=== PATIENT | female | born 1990 | race Caucasian/White ===

== ENCOUNTER 2016-08-02 13:39 | Emergency (ER) | payer OTHER ==
[~2016-08-02] VITALS: Wt 58.5 kg
[~2016-08-02 13:39] MED LIST: PREN1TAB49 PO
[2016-08-02] MEDS ORDERED: ACET500C5 PO (14:12)
[2016-08-02] MEDS ORDERED: IBUP-1542 PO (14:12)
[2016-08-02] MEDS ORDERED: BACTDS PO (14:13)
[2016-08-02] MEDS ORDERED: CEPH-443 PO (14:13)
--- NOTE | 2016-08-02 14:24 | ERD ---
ER Documentation Chief Complaint Date/Time DATE: 08/02/16 TIME: 14:15 Chief Complaint ABCESS ON RIGHT ELBOW HPI This is a 25-year-old female who presents to the emergency department today complaining of a bump on her right elbow as well as some swelling and redness for the past 3 days. States that she thinks she had a pimple there a couple of days ago when she picked at it yesterday. States that her arm feels warm but denies any fevers or chills. ROS All systems reviewed and are negative except as per history of present illness. Medications Home Meds Active Scripts Sulfamethoxazole-Trimethoprim* (Bactrim* DS) 800-160 Mg Tab, 1 TAB PO BID for 7 Days, TAB Prov:GURPREET MULLINS-C 08/02/16 Cephalexin* (Keflex*) 500 Mg Capsule, 500 MG PO QID for 7 Days, CAP Prov:GURPREET MULLINS-C 08/02/16 Acetaminophen* (Tylophen*) 500 Mg Capsule, 1 CAP PO Q6H Y for PAIN AND OR ELEVATED TEMP, #30 CAP Prov:GURPREET MULLINS-C 08/02/16 Ibuprofen* (Motrin*) 600 Mg Tab, 600 MG PO Q6, #30 TAB Prov:GURPREET MULLINS-C 08/02/16 Reported Medications Vits W-Ca,Fe,Fa(<1MG) () 1 Tab Tablet, 1 TAB PO DAILY 11/20/11 Allergies Allergies: Coded Allergies: No Known Allergy (Unverified , 11/20/11) PMhx/Soc History of Surgery: No Anesthesia Reaction: No Hx Neurological Disorder: No Hx Respiratory Disorders: No Hx Cardiac Disorders: No Hx Psychiatric Problems: No Hx Miscellaneous Medical Probl: No Hx Alcohol Use: No Hx Substance Use: No Hx Tobacco Use: No Physical Exam Vitals Vital Signs Date Time Temp Pulse Resp B/P Pulse Ox O2 Delivery O2 Flow Rate FiO2 08/02/16 13:43 99.1 112 17 137/82 99 Physical Exam Const: No acute distress Head: Atraumatic Eyes: Normal Conjunctiva ENT: Normal External Ears, Nose and Mouth. Neck: Full range of motion..~ No meningismus. Resp: Clear to auscultation bilaterally Cardio: tachycardic rhythm, no murmurs Skin: Right proximal forearm with evidence of 1.5-2 cm abscess with localized erythema and cellulitis. No fluctuance. No purulent drainage. MSK: Right elbow and wrist with full active range of motion. Evidence of 1.5- 2 cm abscess at distal elbow or proximal forearm that is firm and indurated with localized evidence of cellulitis Neur: Awake and alert Psych: Normal Mood and Affect Procedures/MDM This is a 25-year-old female who presents to the emergency department today for a bump and redness by her right elbow. On physical exam patient has a 1.5-2 cm abscess with firmness and induration. No evidence of fluctuance. There is an area of localized cellulitis. Patient is tachycardic however she is afebrile and otherwise well-appearing. I do not feel the patient requires an incision and drainage at this time. I will give the patient a prescription for Bactrim and Keflex to treat the abscess and cellulitis. She was instructed to return in 48 hours for a wound check. Patient has full active range of motion of her joints and I have low suspicion for septic joint or gout. Low suspicion for sepsis or deep space infection. At this time the patient is stable for discharge and outpatient management. Patient should follow up with their PCP in the next 1-2 days. They may return to the emergency department sooner for any persistent or worsening of symptoms. Patient understood and agreed with the plan. Departure Diagnosis: Primary Impression: Abscess Additional Impression: Cellulitis Site of cellulitis: extremity Site of cellulitis of extremity: upper extremity Laterality: right Qualified Code: L03.113 - Cellulitis of right upper extremity Condition: Fair Patient Instructions: Abscess, Antiobiotic Treatment Only Referrals: MELODY AUGUSTINE (PCP) Additional Instructions: Call your primary care doctor TOMORROW for an appointment during the next 1-2 days.See the doctor sooner or return here if your condition worsens before your appointment time. Wound check in 48 hours Take antibiotics as prescribed Apply warm compresses Take Tylenol or Motrin for pain GURPREET MULLINS PA-C Aug 02, 2016 14:23
== END 2016-08-02 14:34 | disposition home or self-care (01) ==
LOC: FTE 13:39
DX: L02.413 Cutaneous abscess of right upper limb (principal); L03.113 Cellulitis of right upper limb
CPT/HCPCS: 99284

== ENCOUNTER 2016-08-04 05:30 | Emergency (ER) | payer OTHER ==
[~2016-08-04] VITALS: Ht 149.9 cm; Wt 59.0 kg
[~2016-08-04 05:30] MED LIST changes: +ACET500C5 PO; +BACTDS PO; +CEPH-443 PO; +IBUP-1542 PO
[2016-08-04 05:33] VITALS: Ht 149.9 cm; Wt 59.0 kg
[2016-08-04] MEDS ORDERED: LIDOCAINE 1% (MDV) 20 ML INJ SC ONE (07:30)
[2016-08-04] MEDS ORDERED: IBUPROFEN 600 MG TAB PO ONE (07:30)
--- NOTE | 2016-08-04 08:15 | ERD ---
ER Documentation Chief Complaint Date/Time DATE: 08/04/16 TIME: 08:06 Chief Complaint recheck abcess on rt arm HPI This is a 24-year-old female presenting to the ED for a wound recheck of her right arm abscess. Patient was in the ED 2 days ago, no procedure was warranted and she was discharged home with Keflex and Bactrim. Patient states that a pointing abscess has developed after she was discharged in the ED. denies any fever, numbness or tingling on the right extremity. Right arm pain is controlled by ibuprofen. Patient is taking antibiotics as prescribed. ROS All systems reviewed and are negative except as per history of present illness. Medications Home Meds Active Scripts Sulfamethoxazole-Trimethoprim* (Bactrim* DS) 800-160 Mg Tab, 1 TAB PO BID for 7 Days, TAB Prov:GURPREET MULLINS-C 08/02/16 Cephalexin* (Keflex*) 500 Mg Capsule, 500 MG PO QID for 7 Days, CAP Prov:GURPREET MULLINS-C 08/02/16 Acetaminophen* (Tylophen*) 500 Mg Capsule, 1 CAP PO Q6H Y for PAIN AND OR ELEVATED TEMP, #30 CAP Prov:GURPREET MULLINS-C 08/02/16 Ibuprofen* (Motrin*) 600 Mg Tab, 600 MG PO Q6, #30 TAB Prov:GURPREET MULLINS-C 08/02/16 Reported Medications Vits W-Ca,Fe,Fa(<1MG) () 1 Tab Tablet, 1 TAB PO DAILY 11/20/11 Allergies Allergies: Coded Allergies: No Known Allergy (Unverified , 11/20/11) PMhx/Soc History of Surgery: No Anesthesia Reaction: No Hx Neurological Disorder: No Hx Respiratory Disorders: No Hx Cardiac Disorders: No Hx Psychiatric Problems: No Hx Miscellaneous Medical Probl: No Hx Alcohol Use: No Hx Substance Use: No Hx Tobacco Use: No Smoking Status: Never smoker Physical Exam Vitals Vital Signs Date Time Temp Pulse Resp B/P Pulse Ox O2 Delivery O2 Flow Rate FiO2 08/04/16 05:33 97.8 96 16 127/77 99 Physical Exam Physical Exam CONST: Well-developed, well-nourished, in no acute distress. Nontoxic in appearance. HEENT: Atraumatic. Normal conjunctiva. EOM intact. TM intact. External ear is normal. Clear oropharnyx without erythema. No uvular deviation. Moist mucous membranes. Supple neck. No meningismus. No submandibular induration. RESP: Clear to auscultation bilaterally. No wheezing. CARDIO: Regular rate and rhythm, no murmurs. ABD: Soft, non tender, non distended. Normal bowel sounds. No McBurney's point tenderness. No guarding or rigidity. No peritoneal signs. SKIN: Pointing abscess noted on the dorsal aspect of the right forearm. Erythema appears to be less compared to the markings from the previous ED visit. BACK: No midline or flank tenderness. EXT: Range of motion on the right upper extremity is intact. No cyanosis or edema. Distal pulses equal and bilateral. NEURO: Awake and alert, appropriate for age. Results 24 hrs Current Medications Medications (Trade) Dose Ordered Sig/Jared Route PRN Reason Start Time Stop Time Status Last Admin Dose Admin Ibuprofen (Motrin) 600 mg ONCE ONCE PO 08/04/16 07:30 4 07:31 DC 08/04/16 07:20 Lidocaine (Xylocaine 1% (Mdv) 20 ml) 20 ml ONCE ONCE SC 08/04/16 07:30 08/04/16 07:31 DC Procedures/MDM EMERGENCY DEPARTMENT COURSE/MEDICAL DECISION MAKING This is a 25-year-old female who comes to the emergency room for a wound recheck secondary to abscess on the right forearm. Upon examination, there is a pointing abscess on the dorsal aspect of the right forearm. Erythema is less compared to the markings was done on the previous ED visit. Abscess Incision and Drainage with irrigation by me: Location: Dorsal aspect of the proximal right forearm Anesthesia: Local 1% Lidocaine Technique: 1 cm incision was made using a scalpel. Disrupted loculations w/ instrumentation Packing: Iodoform packing strip Complications: Neurovascularly intact post procedure 48 hour wound check. Scar minimization instructions given. Patient's skin symptoms have stabilized while they have been evaluated in the department and are appropriate for outpatient care and work up. Exam and w/u not consistent w/ sepsis, deep space infection, or foreign body. My primary diagnosis is abscess. Secondary diagnosis right arm pain Differential diagnoses considered but not limited to cellulitis, foreign body, tenosynovitis, dermatitis. Pt is hemodynamically stable upon reassessment. The patient was discharged for outpatient management and was instructed to continue the prescribed antibiotics. Patient was also advised to return to ED in 2 days for wound recheck. The patient was advised to followup with their PMD in 1-2 days and to return to the Emergency Department if there are any new or worsening symptoms. The patient understood and agreed with the diagnosis, treatment and plan. Patient is stable for discharge at this time. Departure Diagnosis: Primary Impression: Abscess Additional Impression: Arm pain Laterality: right Qualified Code: M79.601 - Pain of right upper extremity Patient Instructions: Abscess, Incision And Drainage Referrals: [facility] YOU HAVE RECEIVED A MEDICAL SCREENING EXAM AND THE RESULTS INDICATE THAT YOU DO NOT HAVE A CONDITION THAT REQUIRES URGENT TREATMENT IN THE EMERGENCY DEPARTMENT. FURTHER EVALUATION AND TREATMENT OF YOUR CONDITION CAN WAIT UNTIL YOU ARE SEEN IN YOUR DOCTORS OFFICE WITHIN THE NEXT 1-2 DAYS. IT IS YOUR RESPONSIBILITY TO MAKE AN APPOINTMENT FOR FOLOW-UP CARE. IF YOU HAVE A PRIMARY DOCTOR --you should call your primary doctor and schedule an appointment IF YOU DO NOT HAVE A PRIMARY DOCTOR YOU CAN CALL OUR PHYSICIAN REFERRAL HOTLINE AT IF YOU CAN NOT AFFORD TO SEE A PHYSICIAN YOU CAN CHOSE FROM THE FOLLOWING [facility] [id number] [facility]. [facility] [address] [facility] [facility] [address] [facility] [facility] [address] [facility]. [facility] [address] [facility]. [facility]. [address] Additional Instructions: Return to ED in 2 days for wound recheck Call your primary care doctor tomorrow for an appointment during the next 1-2 days. Return to the emergency department immediately should you have any new or worsening symptoms. Take all medications as directed. MAKENNA PUTNAM Aug 04, 2016 08:15
[2016-08-05] MEDS ORDERED: HYDR-906 PO (16:32)
== END 2016-08-04 08:54 | disposition home or self-care (01) ==
LOC: FTE 05:30
DX: L02.413 Cutaneous abscess of right upper limb (principal); M79.601 Pain in right arm
CPT/HCPCS: 10061; Z7502; Z7610

== ENCOUNTER 2016-08-05 14:58 | Emergency (ER) | payer OTHER ==
[~2016-08-05] VITALS: Wt 61.4 kg
[2016-08-05] MEDS ORDERED: HYDROCODONE/APAP (5/325) TAB PO ONE (15:30)
[2016-08-05] MEDS ORDERED: VANCOMYCIN 1 GM (PMX) 250 ML IVPB SCH (15:30)
[2016-08-05 15:54] LABS: ADD SCAN DIFF NO
[2016-08-05 15:57] LABS: BASOPHILS % 0.5 % (0.0-2.0); EOSINOPHILS % 0.5 % (0.0-7.0); HEMATOCRIT 40.4 % (37.0-47.0); HEMOGLOBIN 13.1 g/dl (12.0-16.0); LYMPHOCYTES # 1.8 10^3/ul (0.8-2.9); LYMPHOCYTES % 21.9 % (15.0-51.0); MEAN CORPUSCULAR HEMOGLOBIN 29.3 pg (29.0-33.0); MEAN CORPUSCULAR HGB CONC 32.4 g/dl (32.0-37.0); MEAN CORPUSCULAR VOLUME 90.4 fl (82.0-101.0); MEAN PLATELET VOLUME 11.8 fl (7.4-10.4); MONOCYTE # 0.6 10^3/ul (0.3-0.9); MONOCYTES % 7.2 % (0.0-11.0); NEUTROPHIL # 5.8 10^3/ul (1.6-7.5); NEUTROPHILS % 69.7 % (39.0-77.0); PLATELET COUNT 266 10^3/UL (140-415); RED BLOOD COUNT 4.47 10^6/ul (4.20-5.40); RED CELL DISTRIBUTION WIDTH 12.4 % (11.5-14.5); WHITE BLOOD COUNT 8.4 10^3/ul (4.8-10.8)
[2016-08-05 16:12] LABS: ALBUMIN 4.3 g/dl (3.3-4.9); ALBUMIN/GLOBULIN RATIO 1.22; BILIRUBIN,INDIRECT 0.1 mg/dl (0-1.1); BILIRUBIN,TOTAL 0.1 mg/dl (0.2-1.3); CALCIUM 9.1 mg/dl (8.4-10.2); CREATININE 0.66 mg/dl (0.44-1.00); POTASSIUM 3.9 mmol/L (3.5-5.1); TOTAL PROTEIN 7.8 g/dl (6.1-8.1)
[2016-08-05] MEDS ORDERED: DIPHENHYDRAMINE 50 MG INJ IV ONE (16:30)
[2016-08-05] MEDS ORDERED: HYDR-906 PO (16:32)
--- NOTE | 2016-08-05 16:51 | ERD ---
ER Documentation Chief Complaint Date/Time DATE: 08/05/16 TIME: 16:33 Chief Complaint abscess on elbow HPI This is a 25-year-old female who presents to the ED with right arm pain and swelling. Patient was seen in this ED 3 days ago for right arm abscess and was discharged home with a prescription for with Bactrim and Keflex. Patient was again seen here yesterday and I&D was performed. Patient went to [facility] today with increased right arm pain and swelling, and she was advised to return to ED. Patient has been taking antibiotics as instructed. Denies any fever at home. No new neurological deficits reported. ROS All systems reviewed and are negative except as per history of present illness. Medications Home Meds Active Scripts Hydrocodone/Acetaminophen ([place] 5-325 Tablet) 1 Each Tablet, 1 TAB PO Q6H Y for PAIN, #10 TAB Prov:MAKENNA PUTNAM 08/05/16 Sulfamethoxazole-Trimethoprim* (Bactrim* DS) 800-160 Mg Tab, 1 TAB PO BID for 7 Days, TAB Prov:GURPREET MULLINS-C 08/02/16 Cephalexin* (Keflex*) 500 Mg Capsule, 500 MG PO QID for 7 Days, CAP Prov:GURPREET MULLINS-C 08/02/16 Acetaminophen* (Tylophen*) 500 Mg Capsule, 1 CAP PO Q6H Y for PAIN AND OR ELEVATED TEMP, #30 CAP Prov:GURPREET MULLINS-C 08/02/16 Ibuprofen* (Motrin*) 600 Mg Tab, 600 MG PO Q6, #30 TAB Prov:GURPREET MULLINS-C 08/02/16 Reported Medications Vits W-Ca,Fe,Fa(<1MG) () 1 Tab Tablet, 1 TAB PO DAILY 11/20/11 Allergies Allergies: Coded Allergies: No Known Allergy (Unverified , 11/20/11) PMhx/Soc History of Surgery: No Anesthesia Reaction: No Hx Neurological Disorder: No Hx Respiratory Disorders: No Hx Cardiac Disorders: No Hx Psychiatric Problems: No Hx Miscellaneous Medical Probl: No Hx Alcohol Use: No Hx Substance Use: No Hx Tobacco Use: No Smoking Status: Never smoker Physical Exam Vitals Vital Signs Date Time Temp Pulse Resp B/P Pulse Ox O2 Delivery O2 Flow Rate FiO2 08/05/16 15:01 98.8 120 20 127/77 100 Physical Exam Physical Exam CONST: Well-developed, well-nourished, in no acute distress. Nontoxic in appearance. HEENT: Atraumatic. Normal conjunctiva. EOM intact. TM intact. External ear is normal. Clear oropharnyx without erythema. No uvular deviation. Moist mucous membranes. Supple neck. No meningismus. No submandibular induration. RESP: Clear to auscultation bilaterally. No wheezing. CARDIO: Regular rate and rhythm, no murmurs. ABD: Soft, non tender, non distended. Normal bowel sounds. No McBurney's point tenderness. No guarding or rigidity. No peritoneal signs. SKIN: Iodoform dressing is intact on the right arm wound site with minimal drainage. +1 edema and erythema extending from the distal edge of the wound dressing to the right hand. Trace edema was also noted from the proximal end of the wound dressing to the upper arm. BACK: No midline or flank tenderness. EXT: No cyanosis or edema. Distal pulses equal and bilateral. NEURO: Awake and alert, appropriate for age. 5/5 strength in all extremities. Normal speech. Steady gait. Result Diagram: 08/05/16 1545 08/05/16 1545 Results 24 hrs Laboratory Tests Test 08/05/16 15:45 White Blood Count 8.410^3/ul Red Blood Count 4.4710^6/ul Hemoglobin 13.1g/dl Hematocrit 40.4% Mean Corpuscular Volume 90.4fl Mean Corpuscular Hemoglobin 29.3pg Mean Corpuscular Hemoglobin Concent 32.4g/dl Red Cell Distribution Width 12.4% Platelet Count 11748^3/UL Mean Platelet Volume 11.8fl Neutrophils % 69.7% Lymphocytes % 21.9% Monocytes % 7.2% Eosinophils % 0.5% Basophils % 0.5% Nucleated Red Blood Cells % 0.0/100WBC Neutrophils # 5.810^3/ul Lymphocytes # 1.810^3/ul Monocytes # 0.610^3/ul Eosinophils # 0.010^3/ul Basophils # 0.010^3/ul Nucleated Red Blood Cells # 0.010^3/ul Sodium Level 137mmol/L Potassium Level 3.9mmol/L Chloride Level 104mmol/L Carbon Dioxide Level 22mmol/L Anion Gap 15 Blood Urea Nitrogen 8mg/dl Creatinine 0.66mg/dl Glucose Level 97mg/dl Calcium Level 9.1mg/dl Total Bilirubin 0.1mg/dl Direct Bilirubin 0.00mg/dl Indirect Bilirubin 0.1mg/dl Aspartate Amino Transf (AST/SGOT) 20IU/L Alanine Aminotransferase (ALT/SGPT) 21IU/L Alkaline Phosphatase 105IU/L Total Protein 7.8g/dl Albumin 4.3g/dl Globulin 3.50g/dl Albumin/Globulin Ratio 1.22 Current Medications Medications (Trade) Dose Ordered Sig/Jared Route PRN Reason Start Time Stop Time Status Last Admin Dose Admin Acetaminophen/ Hydrocodone Bitart 1 tab 1 tab ONCE ONCE PO 08/05/16 15:30 08/05/16 15:32 DC Vancomycin HCl (Vancocin) 250 ml @ 125 mls/hr ONCE IVPB 08/05/16 15:30 08/05/16 17:29 08/05/16 15:49 Diphenhydramine HCl (Benadryl) 25 mg ONCE ONCE IV 08/05/16 16:30 08/05/16 16:31 DC 08/05/16 16:42 Procedures/MDM EMERGENCY DEPARTMENT COURSE/MEDICAL DECISION MAKING This is a 25-year-old female who comes to the emergency room for possible right arm cellulitis. Lab results reviewed and is negative for leukocytosis or neutrophilia. Wound culture was also ordered. Upon examination, wound site appears to be healing well without any induration or erythema. Case was discussed with Dr. Sahni and he also re-evaluated the wound. We both agreed to discharge patient after the IV antibiotic is given. The patient was given vancomycin 1 g IV and Benadryl IV in the department. My primary diagnosis is cellulitis. Secondary diagnosis is wound recheck. Differential diagnoses considered but not limited to fractures, dislocations, septic joint, compartment syndrome, neurologic injury, vascular injury, tendon laceration, septic arthritis, osteomyelitis, DVT, foreign body, muscle sprain/ strain. Pt is hemodynamically stable upon reassessment. There are no new complaints during the ED course. The patient was discharged for outpatient management with a prescription for [place]. Patient was instructed to elevate the arm at all times. The patient was advised to followup with their PMD in 1-2 days and to return to the Emergency Department if there are any new or worsening symptoms. The patient understood and agreed with the diagnosis, treatment and plan. Patient is stable for discharge at this time. Departure Diagnosis: Primary Impression: Cellulitis Site of cellulitis: extremity Site of cellulitis of extremity: upper extremity Laterality: right Qualified Code: L03.113 - Cellulitis of right upper extremity Additional Impression: Encounter for wound re-check Condition: Stable Patient Instructions: Wound Care Additional Instructions: Elevate the right arm at all times. Call your primary care doctor tomorrow for an appointment during the next 1-2 days. Return to the emergency department immediately should you have any new or worsening symptoms. Take all medications as directed. MAKENNA PUTNAM Aug 05, 2016 16:46
== END 2016-08-05 18:08 | disposition home or self-care (01) ==
LOC: FTE 14:58
DX: L03.113 Cellulitis of right upper limb (principal); Z48.01 Encounter for change or removal of surgical wound dressing
CPT/HCPCS: 80053; 85025; J1200; J3370; 96374; 96375

== ENCOUNTER 2016-08-07 07:02 | Emergency (ER) | payer OTHER ==
[~2016-08-07] VITALS: Wt 54.5 kg
[~2016-08-07 07:02] MED LIST changes: +HYDR-906 PO
--- NOTE | 2016-08-07 08:29 | ERD ---
ER Documentation Chief Complaint Date/Time DATE: 08/07/16 TIME: 08:27 Chief Complaint WOUND CHECK TO RIGHT ELBOW NO FEVERS NO PAIN. HPI This is a 25-year-old female presenting to the emergency room with a wound check for abscess and cellulitis that was I&D on August 02, 2016. Patient states that she has been taking her Keflex and Bactrim and has 2 days left. She states that it has improved significantly. She denies any fevers or worsening pain. ROS All systems reviewed and are negative except as per history of present illness. Medications Home Meds Active Scripts Hydrocodone/Acetaminophen ([place] 5-325 Tablet) 1 Each Tablet, 1 TAB PO Q6H Y for PAIN, #10 TAB Prov:MAKENNA PUTNAM 08/05/16 Sulfamethoxazole-Trimethoprim* (Bactrim* DS) 800-160 Mg Tab, 1 TAB PO BID for 7 Days, TAB Prov:PROGURPREET TEJADA-C 08/02/16 Cephalexin* (Keflex*) 500 Mg Capsule, 500 MG PO QID for 7 Days, CAP Prov:PROGURPREET TEJADA-C 08/02/16 Acetaminophen* (Tylophen*) 500 Mg Capsule, 1 CAP PO Q6H Y for PAIN AND OR ELEVATED TEMP, #30 CAP Prov:GURPREET MULLINS-C 08/02/16 Ibuprofen* (Motrin*) 600 Mg Tab, 600 MG PO Q6, #30 TAB Prov:GURPREET MULLINS-C 08/02/16 Reported Medications Vits W-Ca,Fe,Fa(<1MG) () 1 Tab Tablet, 1 TAB PO DAILY 11/20/11 Allergies Allergies: Coded Allergies: No Known Allergy (Unverified , 11/20/11) PMhx/Soc History of Surgery: No Anesthesia Reaction: No Hx Neurological Disorder: No Hx Respiratory Disorders: No Hx Cardiac Disorders: No Hx Psychiatric Problems: No Hx Miscellaneous Medical Probl: No Hx Alcohol Use: No Hx Substance Use: No Hx Tobacco Use: No Physical Exam Vitals Vital Signs Date Time Temp Pulse Resp B/P Pulse Ox O2 Delivery O2 Flow Rate FiO2 08/07/16 07:06 97.9 96 20 125/69 98 Physical Exam General: WD/WN, in no apparent distress, non-toxic appearing HENT: NC/AT Eyes: Conjunctiva normal Neck: Supple Pulm: Clear to auscultation, normal labored breathing; no wheezing/rales/ rhonchi heard CV: Good capillary refill GI: Non-distended, no guarding Back: No masses Ext: No clubbing, cyanosis, or edema Neuro: Moves on all fours Skin: healing incisional site on the right elbow, no evidence of erythema or discharge Psych: Normal mood Procedures/MDM This is a 25-year-old female with a history of abscess and cellulitis that was I &D on August 02, 2016 and given Keflex and Bactrim antibiotics with 2 days left presenting to the emergency room for a wound check. On examination it appears that it is healing and improved. I discussed with patient to continue her antibiotics, I discussed return to the ER for any worsening signs or symptoms or if it is not improving as expected. Patient understands and agrees with this plan Departure Diagnosis: Primary Impression: Cellulitis Condition: Stable Patient Instructions: Cellulitis Additional Instructions: Follow up in 2 days in your clinic for wound check. Take all medicines as directed. Return to this facility if you are not improving as expected. ANGEL DANIEL PA-C Aug 07, 2016 08:29
== END 2016-08-07 09:17 | disposition home or self-care (01) ==
LOC: FTE 07:02
DX: L03.113 Cellulitis of right upper limb (principal)
CPT/HCPCS: 99282

== ENCOUNTER 2017-01-31 06:41 | Emergency (ER) | payer OTHER ==
[~2017-01-31] VITALS: Ht 152.4 cm; Wt 55.0 kg
[2017-01-31 06:44] VITALS: Ht 152.4 cm; Wt 55.0 kg
[2017-01-31] MEDS ORDERED: CLINDAMYCIN 300 MG CAP PO ONE (08:00)
[2017-01-31] MEDS ORDERED: IBUP400T22 PO (08:05)
[2017-01-31] MEDS ORDERED: CLIN-73 PO (08:05)
[2017-01-31 08:26] VITALS: BP 112/60; PULSE 98; RESP 19; TEMP 98.5
--- NOTE | 2017-01-31 09:06 | ERD ---
ER Documentation Chief Complaint Date/Time DATE: 01/31/17 TIME: 08:58 Chief Complaint Complains of right side bump and swelling (CHAITANYA KEYES PA-C) HPI 26-year-old female patient with a past medical history of recurrent abscesses presents to the ED complaining of an inflamed painful bump on the right side of her frontal scalp that started 3 days ago. Patient reports that it feels like her previous abscesses on her right upper extremity. Denies any itchiness. Denies taking any medications or doing anything to improve her pain. Denies any fever, chills, headache, nausea, vomiting, neck stiffness, earache, chest pain, shortness of breath, redness, numbness or tingling. (CHAITANYA KEYES PA-C) ROS All systems reviewed and are negative except as per history of present illness. (CHAITANYA KEYES PA-C) Medications Home Meds Active Scripts Ibuprofen* (Motrin*) 400 Mg Tab, 400 MG PO Q6, #30 TAB Prov:CHAITANYA KEYES PA-C 01/31/17 Clindamycin Hcl* (Clindamycin Hcl*) 300 Mg Capsule, 300 MG PO TID for 10 Days, CAP Prov:CHAITANYA KEYES PA-C 01/31/17 Hydrocodone/Acetaminophen ([place] 5-325 Tablet) 1 Each Tablet, 1 TAB PO Q6H Y for PAIN, #10 TAB Prov:MAKENNA PUTNAM 08/05/16 Sulfamethoxazole-Trimethoprim* (Bactrim* DS) 800-160 Mg Tab, 1 TAB PO BID for 7 Days, TAB Prov:GURPREET MULLINS PA-C 08/02/16 Cephalexin* (Keflex*) 500 Mg Capsule, 500 MG PO QID for 7 Days, CAP Prov:PROGURPREET TEJADA PA-C 08/02/16 Acetaminophen* (Tylophen*) 500 Mg Capsule, 1 CAP PO Q6H Y for PAIN AND OR ELEVATED TEMP, #30 CAP Prov:GURPREET MULLINS PA-C 08/02/16 Ibuprofen* (Motrin*) 600 Mg Tab, 600 MG PO Q6, #30 TAB Prov:GURPREET MULLINS PA-C 08/02/16 Reported Medications Vits W-Ca,Fe,Fa(<1MG) () 1 Tab Tablet, 1 TAB PO DAILY 11/20/11 Allergies Allergies: Coded Allergies: No Known Allergy (Unverified , 01/31/17) PMhx/Soc Medical and Surgical Hx: pt denies Medical Hx, pt denies Surgical Hx History of Surgery: No Anesthesia Reaction: No Hx Neurological Disorder: No Hx Respiratory Disorders: No Hx Cardiac Disorders: No Hx Psychiatric Problems: No Hx Miscellaneous Medical Probl: No Hx Alcohol Use: No Hx Substance Use: No Hx Tobacco Use: No Smoking Status: Never smoker (CHAITANYA KEYES PA-C) Physical Exam Vitals Vital Signs Date Time Temp Pulse Resp B/P Pulse Ox O2 Delivery O2 Flow Rate FiO2 01/31/17 08:26 98.5 98 19 112/60 100 Room Air 01/31/17 06:44 98.6 116 20 124/86 99 (SHINE PEREZ MD) Physical Exam Const: Fuz-emk-heohmovzg, well-nourished. In no acute distress. Head: Atraumatic, normocephalic. 1 cm x 1 cm indurated papule noted with slight surrounding erythema of the hair follicle of the right anterior scalp. No fluctuance. No bleeding. No purulent discharge. Eyes: Normal Conjunctiva without injection. No purulent discharge. PERRLA. EOMI ENT: Normal external ear. Ear canal without erythema. Tympanic membrane pearly barreto without effusion or bulging. Nasal canal clear with normal turbinates. Moist oropharynx without tonsillar exudates. Non-erythematous pharynx. Uvula midline. No drooling. No trismus. Neck: No cervical midline tenderness. Full range of motion. No meningismus. No cervical lymphadenopathy. No JVD. Resp: Clear to auscultation bilaterally. No wheezing, rhonchi, rales, or crackles. No accessory muscle use. No retractions. Cardio: Regular rate and rhythm. No murmurs, rubs or gallops. Skin: Normal skin turgor. No petechiae or rashes Ext: No cyanosis, or edema. Distal pulses intact bilaterally. Neur: Awake and alert. Normal gait. Normal coordination. Cranial Nerves II- VII intact. Normal finger to nose. Muscle strength 5/5. Sensation intact. Psych: Normal Mood and Affect (KEYES,CHAITANYA T. PA-C) Results 24 hrs Current Medications Medications (Trade) Dose Ordered Sig/Jared Route PRN Reason Start Time Stop Time Status Last Admin Dose Admin Clindamycin HCl (Cleocin) 300 mg ONCE ONCE PO 01/31/17 08:00 01/31/17 08:01 DC 01/31/17 08:08 (SHINE PEREZ MD) Procedures/MDM 26-year-old female patient with a past medical history of recurrent abscesses presents to the ED complaining of a painful bump on the right side of her scalp that started 3 days ago. Patient is afebrile and nontoxic-appearing. My supervising physician, Dr. Perez and I examined the patient at this time. Patient likely has folliculitis. Patient was given her first dose of clindamycin here in the ED. Patient is appropriate for outpatient management. Wound check in 2 days recommended. Low suspicion for temporal arteritis, anaphylaxis, scabies, SJS/TEN, TSS, Lyme's Disease, syphilis, RMSF, shingles, disseminated gonorrhea chlamydia, DIC, TTP, ITP, erythema multiforme, sepsis, cellulitis, necrotizing fascitis, gangrene, meningococcemia, allergic contact dermatitis, urticaria, eczema, tinea infection, or other emergent conditions. Discharge medications: Ibuprofen, Clindamycin Follow up with primary care physician in 1-2 days. Instructed patient to return to the ED sooner for any worsening symptoms. Patient's questions were answered. Patient understood and agreed with discharge plan. Patient discharged stable. (CHAITANYA KEYES PA-C) Attending addendum: I examined the patient and she does have evidence of soft tissue infection to the scalp. There is no evidence of a drainable abscess, and the appearance is suggestive of folliculitis. I do not suspect tinea capitis. I advise a course of antibiotics with return precautions in case of need for delayed drainage or atypical presentation of fungal infection. (SHINE PEREZ MD) Departure Diagnosis: Primary Impression: Folliculitis Condition: Stable Patient Instructions: Folliculitis Referrals: COMM[facility] YOU HAVE RECEIVED A MEDICAL SCREENING EXAM AND THE RESULTS INDICATE THAT YOU DO NOT HAVE A CONDITION THAT REQUIRES URGENT TREATMENT IN THE EMERGENCY DEPARTMENT. FURTHER EVALUATION AND TREATMENT OF YOUR CONDITION CAN WAIT UNTIL YOU ARE SEEN IN YOUR DOCTORS OFFICE WITHIN THE NEXT 1-2 DAYS. IT IS YOUR RESPONSIBILITY TO MAKE AN APPOINTMENT FOR FOLOW-UP CARE. IF YOU HAVE A PRIMARY DOCTOR --you should call your primary doctor and schedule an appointment IF YOU DO NOT HAVE A PRIMARY DOCTOR YOU CAN CALL OUR PHYSICIAN REFERRAL HOTLINE AT IF YOU CAN NOT AFFORD TO SEE A PHYSICIAN YOU CAN CHOSE FROM THE FOLLOWING [facility] [address] [facility] [address] [facility] [address] [facility] [address] [facility] [address] [facility]. [facility] [address] [facility]. [facility] YOU HAVE RECEIVED A MEDICAL SCREENING EXAM AND THE RESULTS INDICATE THAT YOU DO NOT HAVE A CONDITION THAT REQUIRES URGENT TREATMENT IN THE EMERGENCY DEPARTMENT. FURTHER EVALUATION AND TREATMENT OF YOUR CONDITION CAN WAIT UNTIL YOU ARE SEEN IN YOUR DOCTORS OFFICE WITHIN THE NEXT 1-2 DAYS. IT IS YOUR RESPONSIBILITY TO MAKE AN APPOINTMENT FOR FOLOW-UP CARE. IF YOU HAVE A PRIMARY DOCTOR --you should call your primary doctor and schedule and appointment IF YOU DO NOT HAVE A PRIMARY DOCTOR YOU CAN CALL OUR PHYSICIAN REFERRAL HOTLINE AT . IF YOU CAN NOT AFFORD TO SEE A PHYSICIAN YOU CAN CHOSE FROM THE FOLLOWING [facility]: [facility] [address] [place] [address] [facility] [address] [place] [address] [facility] [address] [place] [address] [facility] URGENT CARE/SPECIALTIES Additional Instructions: Follow up in 2 days in your clinic for wound check. Call your primary care doctor TOMORROW for an appointment during the next 2-3 days.See the doctor sooner or return here if your condition worsens before your appointment time. CHAITANYA KEYES PA-C Jan 31, 2017 09:06 SHINE PEREZ MD Jan 31, 2017 16:54
== END 2017-01-31 08:27 | disposition home or self-care (01) ==
LOC: FTE 06:41
DX: L73.9 Follicular disorder, unspecified (principal)
CPT/HCPCS: Z7502; Z7610; 99283

== ENCOUNTER 2018-11-03 16:49 | Emergency (ER) | payer OTHER ==
[~2018-11-03] VITALS: Ht 149.9 cm; Wt 51.0 kg
[~2018-11-03 16:49] MED LIST changes: +CLIN300C10 PO; +HYDR-4011 PO; -HYDR-906 PO; +IBUP-1561 PO
[2018-11-03 17:06] VITALS: Ht 149.9 cm; Wt 51.0 kg
[2018-11-03] MEDS ORDERED: KETOROLAC 30 MG INJ IV STA (18:26)
[2018-11-03] MEDS ORDERED: SOD CHLORIDE 0.9% 1,000 ML IV STA (18:26)
[2018-11-03] MEDS ORDERED: METOCLOPRAMIDE 10 MG INJ IV ONE (18:30)
[2018-11-03] MEDS ORDERED: DIAZEPAM 5 MG/ML SYG IV ONE (18:30)
[2018-11-03] MEDS ORDERED: IBUP800T48 PO (19:33)
[2018-11-03] MEDS ORDERED: BUTA1CAP38 PO (19:33)
[2018-11-03] MEDS ORDERED: ONDA4TAB14 PO (19:33)
--- NOTE | 2018-11-03 19:38 | ERD ---
ER Documentation Chief Complaint Chief Complaint C/O H/A FOR 9 DAY, NOT GETTING BETTER FROM DIFF. MEDS. HPI This is a 27-year-old female patient who presents emergency room with complaint of intermittent headache x9 days. Pain improves with use of Excedrin and ibuprofen 800 mg. Patient has tried her Imitrex without relief however she states she has started the Imitrex after she already has a headache. Patient has history of migraines. States this pain is typical for her migraine pain. Denies nausea, no vomiting. Describes pain as a pulling sensation starting be hind her right eye/forehead and radiating down into the back of her right neck. Patient also states she feels like she has tension in her right upper trapezius. No trauma, no hormone therapy, patient does not smoke. Patient with clear speech, steady gait, no pronator drift, NAD at time of evaluation. ROS All systems reviewed and are negative except as per history of present illness. Medications Home Meds Active Scripts Ibuprofen* (Motrin*) 800 Mg Tab, 800 MG PO Q6 for migraine for 10 Days, #30 TAB Prov:NEREYDA CINTRON NP 11/03/18 Ondansetron (Ondansetron Odt) 4 Mg Tab.rapdis, 4 MG PO Q6H PRN for NAUSEA AND/OR VOMITING for 5 Days, #10 TAB Prov:NEREYDA CINTRON NP 11/03/18 Gkvwmtsimy-Wstvickhmdyfd-Oxshbvmd* (Fioricet*) 50-300-40 Mg Capsule, 1 CAP PO Q4H PRN for migraine for 5 Days, #20 CAP Prov:NEREYDA CINTRON NP 11/03/18 Ibuprofen* (Motrin*) 400 Mg Tab, 400 MG PO Q6, #30 TAB Prov:CHAITANYA KEYES PA-C 01/31/17 Clindamycin Hcl* (Clindamycin Hcl*) 300 Mg Capsule, 300 MG PO TID for 10 Days, CAP Prov:CHAITANYA KEYES PA-C 01/31/17 Hydrocodone/Acetaminophen ([place] 5-325 Tablet) 1 Each Tablet, 1 TAB PO Q6H PRN for PAIN, #10 TAB Prov:MAKENNA PUTNAM 08/05/16 Sulfamethoxazole-Trimethoprim* (Bactrim* DS) 800-160 Mg Tab, 1 TAB PO BID for 7 Days, TAB Prov:GURPREET MULLINS PA-C 08/02/16 Cephalexin* (Keflex*) 500 Mg Capsule, 500 MG PO QID for 7 Days, CAP Prov:GURPREET MULLINS Yelena CANO 08/02/16 Acetaminophen* (Tylophen*) 500 Mg Capsule, 1 CAP PO Q6H PRN for PAIN AND OR ELEVATED TEMP, #30 CAP Prov:GURPREET MULLINS PA-C 08/02/16 Ibuprofen* (Motrin*) 600 Mg Tab, 600 MG PO Q6, #30 TAB Prov:SUSANNAVIKAGURPREETSULY Kirk PA-C 08/02/16 Reported Medications Vits W-Ca,Fe,Fa(<1MG) () 1 Tab Tablet, 1 TAB PO DAILY 11/20/11 Allergies Allergies: Coded Allergies: No Known Allergy (Unverified , 01/31/17) PMhx/Soc Medical and Surgical Hx: pt denies Medical Hx History of Surgery: No Anesthesia Reaction: No Hx Neurological Disorder: No Hx Respiratory Disorders: No Hx Cardiac Disorders: No Hx Psychiatric Problems: No Hx Miscellaneous Medical Probl: No Hx Alcohol Use: No Hx Substance Use: No Hx Tobacco Use: No Smoking Status: Never smoker FmHx Family History: No diabetes, No coronary disease, No other Physical Exam Vitals Vital Signs Date Temp Pulse Resp B/P (MAP) Pulse Ox O2 O2 Flow FiO2 Time Delivery Rate 11/03/18 90 16 101/58 98 Room Air 19:55 (72) 11/03/18 98.8 98 18 137/74 100 17:06 (95) Physical Exam Const: No acute distress Head: No bruising, no swelling, no hematoma, no crepitus, no maxillary or frontal sinus tenderness Eyes: Normal Conjunctiva. PERRL, EOMI, no nystagmus, no visual deficit ENT: Normal External Ears, Nose and Mouth. Pharynx pink, moist, no petechiae, no lesions. Neck: Full range of motion. No meningismus. No cervical spinal tenderness. No lymphadenopathy Resp: Clear to auscultation bilaterally, no rales, rhonchi. Chest rise equal bilaterally. Cardio: Regular rate and rhythm, no murmurs Abd: Soft, non tender, non distended. Normal bowel sounds. No bruising. Skin: No petechiae or rashes, no abrasions, no hematomas. 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 Psych: Normal Mood and Affect Results 24 hrs Laboratory Tests Test 11/03/18 18:44 POC Beta HCG, Qualitative NEGATIVE Current Medications Medications Dose Sig/Jared Start Time Status Last (Trade) Ordered Route PRN Stop Time Admin Dose Reason Admin Sodium 1,000 ml @ Q1H STAT 11/03/18 DC 11/03/18 Chloride 1,000 mls/hr IV 18:26 18:45 11/03/18 19:25 Ketorolac 30 mg ONCE STAT 11/03/18 DC 11/03/18 Tromethamine IV 18:26 18:46 (Toradol) 11/03/18 18:29 Diazepam 5 mg ONCE ONCE 11/03/18 DC 11/03/18 (Valium) IV 18:30 18:46 11/03/18 18:31 10 mg ONCE ONCE 11/03/18 DC 11/03/18 Metoclopramid IV 18:30 18:46 e HCl 11/03/18 18:31 (Reglan) Procedures/MDM PROCEDURES/MDM DIAGNOSTIC IMAGING: Read by radiologist. Not indicated LAB [place]PRET[place] [facility] [place]Medications: NS, Toradol, Valium, Reglan Patient tolerated medication well with no adverse reactions. Patient reported complete resolution of headache and symptoms. MDM: This is a well-appearing 27-year-old female who presents with what she describes as her typical migraine pain that she has been unable to resolve with use of Excedrin, ibuprofen and Imitrex over the last 9 days. She has had some relief but pain returns. Patient localizes pain to right side of her head and neck and describes pain as a pulling sensation, characteristic of tension headache. Denies visual deficits, no nausea or vomiting, physical exam does not reveal any neurological deficits. Patient was treated in a usual manner with hydration, NSAIDs, antiemetic, muscle relaxer with complete resolution of symptoms. Patient was instructed on keeping headache diary to try to determine triggers, stretching exercises to relieve tension in her neck which may be a cause of her tension headache, increasing hydration, increasing rest and first-line use of ibuprofen, second line Fioricet if headache does not break. Patient was also instructed on use of Imitrex and instructed to use Imitrex at the very first sign of headache. Patient was instructed to follow-up with her primary care doctor for further evaluation and possible referral to neurology or headache specialist. Patient was instructed to return to the emergency room immediately with any changing or worsening of symptoms. The patient was well-appearing with VSS and without neurological deficits at time of reevaluation and discharge. Clinical and diagnostic exam not suggestive of infection, intracranial process, SAH, SDH, neoplasm, meningitis, encephalitis, aneurysm, thrombus, temporal arteritis, sinusitis. DISPOSITION and PLAN: RX:Ibuprofen, Fioricet, zofran The patient has been discharge home to follow-up with community physician. Departure Diagnosis: Primary Impression: Migraine Migraine type: with aura Status migrainosus presence: without status migrainosus Intractability: not intractable Qualified Codes: G43.109 - Migraine with aura, not intractable, without status migrainosus Condition: Stable Patient Instructions: What Are Migraine and Tension Headaches?, Self-Care for Headaches Referrals: [facility] YOU HAVE RECEIVED A MEDICAL SCREENING EXAM AND THE RESULTS INDICATE THAT YOU DO NOT HAVE A CONDITION THAT REQUIRES URGENT TREATMENT IN THE EMERGENCY DEPARTMENT. FURTHER EVALUATION AND TREATMENT OF YOUR CONDITION CAN WAIT UNTIL YOU ARE SEEN IN YOUR DOCTORS OFFICE WITHIN THE NEXT 1-2 DAYS. IT IS YOUR RESPONSIBILITY TO MAKE AN APPOINTMENT FOR FOLOW-UP CARE. IF YOU HAVE A PRIMARY DOCTOR --you should call your primary doctor and schedule an appointment IF YOU DO NOT HAVE A PRIMARY DOCTOR YOU CAN CALL OUR PHYSICIAN REFERRAL HOTLINE AT IF YOU CAN NOT AFFORD TO SEE A PHYSICIAN YOU CAN CHOSE FROM THE FOLLOWING [facility] [address] [facility]. [facility] [address] [facility] [facility] [address] [facility] [facility] [address] [facility] [address] [facility]. [facility]. [address] [facility]. [facility] YOU HAVE RECEIVED A MEDICAL SCREENING EXAM AND THE RESULTS INDICATE THAT YOU DO NOT HAVE A CONDITION THAT REQUIRES URGENT TREATMENT IN THE EMERGENCY DEPARTMENT. FURTHER EVALUATION AND TREATMENT OF YOUR CONDITION CAN WAIT UNTIL YOU ARE SEEN IN YOUR DOCTORS OFFICE WITHIN THE NEXT 1-2 DAYS. IT IS YOUR RESPONSIBILITY TO MAKE AN APPOINTMENT FOR FOLOW-UP CARE. IF YOU HAVE A PRIMARY DOCTOR --you should call your primary doctor and schedule and appointment IF YOU DO NOT HAVE A PRIMARY DOCTOR YOU CAN CALL OUR PHYSICIAN REFERRAL HOTLINE AT . IF YOU CAN NOT AFFORD TO SEE A PHYSICIAN YOU CAN CHOSE FROM THE FOLLOWING [facility] INSTITUTIONS: [facility] [address] [place] [address] [facility] [address] [place] [address] [facility] [address] [place] [address] Additional Instructions: Thank you very much for allowing us to participate in your care. Your health and safety is our top priority at [facility]. Call your primary care doctor TOMORROW for an appointment during the next 2-4 days and bring all the information and medications prescribed. Have prescriptions filled and follow precisely the directions on the label. If the symptoms get worse and your provider is unavailable, return to the Emergency Department immediately. USE HEAT TO RIGHT NECK DAILY AND STRETCHING EXERCISES USE IBUPROFEN FIRST-LINE TREATMENT FOR MIGRAINE HEADACHE USE ZOFRAN NEEDED FOR NAUSEA USE FIORICET NEEDED FOR SEVERE MIGRAINE THAT DOES NOT GET RESOLVED WITH IBUPROFEN OR TYLENOL-USE CAUTION WITH THIS MEDICATION IT MAY MAKE YOU DROWSY, DO NOT DRINK ALCOHOL, DRIVE A CAR, TAKE CARE OF SMALL CHILDREN WHILE TAKING THIS MEDICATION FOLLOW-UP WITH YOUR PRIMARY CARE PROVIDER YOU MAY NEED FURTHER SPECIALIZED TREATMENT BY NEUROLOGIST NEREYDA CINTRON NP Nov 03, 2018 19:38
[2018-11-03 19:55] VITALS: BP 101/58; PULSE 90; RESP 16
== END 2018-11-03 19:57 | disposition home or self-care (01) ==
LOC: FTE 16:49
DX: G43.109 Migraine with aura, not intractable, without status migrainosus (principal)
CPT/HCPCS: 81025; 96361; 96374; 96375; J1885; J2765; J3360; J7030; Z7502